=== PATIENT | male | born 1950 | race African-American/Black ===

== ENCOUNTER 2023-09-30 19:40 | Inpatient (IN) | payer OTHER ==
[~2023-09-30] VITALS: Ht 175.3 cm; Wt 69.4 kg
[2023-09-30 19:40] VITALS: BP_SYST 69; PULSE 86; RESP 18; TEMP 98.1; O2SAT 99
[2023-09-30] MEDS ORDERED: iohexoL 350 mgI/mL, 100 ML INFUS..BTL IV ONE (19:57)
[2023-09-30] MEDS ORDERED: ZINC50TA15 PO (20:19)
[2023-09-30] MEDS ORDERED: TRAZ-251 PO (20:19)
[2023-09-30] MEDS ORDERED: CLON1TAB12 PO (20:19)
[2023-09-30] MEDS ORDERED: MEMA10TA22 PO (20:19)
[2023-09-30] MEDS ORDERED: DONE5TAB33 PO (20:19)
[2023-09-30] MEDS ORDERED: BISA10SU61 RC (20:19)
[2023-09-30] MEDS ORDERED: [UNRECOGNIZED DRUG - CODE] PO (20:19)
[2023-09-30] MEDS ORDERED: VIS50 PO (20:19)
[2023-09-30] MEDS ORDERED: SIMV-343 PO (20:19)
[2023-09-30] MEDS ORDERED: DOCU100T10 PO (20:19)
[2023-09-30] MEDS ORDERED: MULT-1189 PO (20:19)
[2023-09-30] MEDS ORDERED: CARV12.548 PO (20:19)
[2023-09-30] MEDS ORDERED: VALS1TAB75 PO (20:19)
[2023-09-30] MEDS ORDERED: ASC500 PO (20:19)
[2023-09-30] MEDS ORDERED: TRAZ150T77 PO (20:19)
[2023-09-30] MEDS ORDERED: ASPI81CA PO (20:19)
[2023-09-30] MEDS ORDERED: SERT100T PO (20:19)
[2023-09-30] MEDS: NS 1000 ML IV.SOLN IV ONE (20:22)
[2023-09-30 20:30] LABS: INR 1.1 (0.80-1.20); PROTHROMBIN TIME 11.2 SECS (9.5-12.5)
[2023-09-30 20:32] LABS: BASOPHILS % (AUTO) 0.4 % (0.0-2.0); EOSINOPHILS # (AUTO) 0.1 K/uL (0.0-0.4); EOSINOPHILS % (AUTO) 1.3 % (0.0-4.0); HEMATOCRIT 40.3 % (36-54); HEMOGLOBIN 12.9 g/dL (14.0-18.0); LYMPHOCYTES # (AUTO) 1.8 K/uL (1.0-5.5); LYMPHOCYTES % (AUTO) 20.8 % (20.5-51.5); MEAN CORPUSCULAR HEMOGLOBIN 20 pg (27-31); MEAN CORPUSCULAR HGB CONC 32 % (32-36); MEAN CORPUSCULAR VOLUME 63 fL (79.0-98.0); MONOCYTES # (AUTO) 0.5 K/uL (0.0-1.0); MONOCYTES % (AUTO) 5.7 % (1.7-9.3); NEUTROPHILS # (AUTO) 6.2 K/uL (1.8-7.7); NEUTROPHILS % (AUTO) 71.8 % (40.0-70.0); PLATELET COUNT (AUTO) 294 K/uL (130-430); RED BLOOD CELL COUNT(AUTO) 6.36 MIL/uL (4.2-6.2); RED CELL DISTRIBUTION WIDTH 16.6 % (9.0-15.0); WHITE BLOOD COUNT (AUTO) 8.6 K/uL (4.8-10.8)
[2023-09-30] MEDS ORDERED: PIPERACILLIN/TAZOBACTAM 3.375 GM/VIAL (ZOSYN) IV ONE ×2 (20:48)
[2023-09-30] MEDS: PIPERACILLIN/TAZO 3.375 GM in NS 50 ML IV ONE (20:52)
[2023-09-30 21:01] LABS: ANION GAP 13 (5-15); CALCIUM 9.2 mg/dL (8.4-11.0); CARBON DIOXIDE 29 mmol/L (23-29); CHLORIDE 103 mmol/L (98-107); CHOLESTEROL 150 mg/dL (<200); CREATININE 1.16 mg/dL (0.55-1.30); GLUCOSE 163 mg/dL (74-106); HDL CHOLESTEROL 52 mg/dL (>45); POTASSIUM 3.7 mmol/L (3.5-5.1); SODIUM SERUM 145 mmol/L (136-145); TRIGLYCERIDES 92 mg/dL (30-150); UREA NITROGEN, BLOOD 12 mg/dL (8-21)
[2023-09-30 21:15] LABS: ANISOCYTOSIS 1+; HYPOCHROMASIA 1+
[2023-09-30 21:37] LABS: BILIRUBIN,URINE NEGATIVE (NEGATIVE); BLOOD, URINE NEGATIVE (NEGATIVE); CLARITY/URINE CLEAR (CLEAR); COLOR,URINE YELLOW (YELLOW); GLUCOSE,URINE NEGATIVE (NEGATIVE); KETONES,URINE NEGATIVE (NEGATIVE); LEUKOCYTE ESTERASE ,URINE NEGATIVE (NEGATIVE); NITRITE, URINE NEGATIVE (NEGATIVE); PROTEIN URINE NEGATIVE (NEGATIVE); UROBILINOGEN,URINE 0.2 (0.2-1.0)
[2023-09-30] MEDS: KCL 20 mEq in D5NS 1000 mL 1,000 ML IV SCH (21:58)
[2023-09-30 22:06] LABS: BARBITURATE, URINE NEGATIVE (NEG <=200); BENZODIAZEPINE, URINE NEGATIVE (NEG <=150); CANNABINOID, URINE NEGATIVE (NEG <=50); COCAINE, URINE NEGATIVE (NEG <=150); METHAMPHETAMINES SCREEN,URINE NEGATIVE (NEG <=500); OPIATE, URINE NEGATIVE (NEG <=100); PHENCYCLIDINE SCREEN,URINE NEGATIVE (NEG <=25); UR TRICYCLIC ANTIDEPRESSANTS NEGATIVE (NEG <=300); URINE AMPHETAMINE NEGATIVE (NEG <=500); URINE METHADONE NEGATIVE (NEG <=200); URINE OXYCODONE SCREEN NEGATIVE (NEG <=100)
[2023-09-30] MEDS: ENOXAPARIN SODIUM 40 MG/0.4 ML SYRINGE SUBCUT ONE (22:18)
[2023-10-01 04:41] LABS: ANION GAP 3 (5-15); CALCIUM 8.5 mg/dL (8.4-11.0); CARBON DIOXIDE 32 mmol/L (23-29); CHLORIDE 109 mmol/L (98-107); CREATININE 0.98 mg/dL (0.55-1.30); GLUCOSE 130 mg/dL (74-106); POTASSIUM 3.7 mmol/L (3.5-5.1); SODIUM SERUM 144 mmol/L (136-145); UREA NITROGEN, BLOOD 12 mg/dL (8-21)
[2023-10-01 04:56] LABS: BASOPHILS % (AUTO) 0.3 % (0.0-2.0); EOSINOPHILS # (AUTO) 0.1 K/uL (0.0-0.4); EOSINOPHILS % (AUTO) 0.6 % (0.0-4.0); HEMATOCRIT 37.4 % (36-54); HEMOGLOBIN 11.8 g/dL (14.0-18.0); LYMPHOCYTES # (AUTO) 2.1 K/uL (1.0-5.5); LYMPHOCYTES % (AUTO) 18.7 % (20.5-51.5); MEAN CORPUSCULAR HEMOGLOBIN 20 pg (27-31); MEAN CORPUSCULAR HGB CONC 32 % (32-36); MEAN CORPUSCULAR VOLUME 64 fL (79.0-98.0); MONOCYTES # (AUTO) 0.8 K/uL (0.0-1.0); MONOCYTES % (AUTO) 7.3 % (1.7-9.3); NEUTROPHILS # (AUTO) 8.4 K/uL (1.8-7.7); NEUTROPHILS % (AUTO) 73.1 % (40.0-70.0); PLATELET COUNT (AUTO) 274 K/uL (130-430); RED BLOOD CELL COUNT(AUTO) 5.86 MIL/uL (4.2-6.2); RED CELL DISTRIBUTION WIDTH 16.3 % (9.0-15.0); WHITE BLOOD COUNT (AUTO) 11.5 K/uL (4.8-10.8)
[2023-10-01 08:15] VITALS: BP_SYST 135; PULSE 67; RESP 20; TEMP 97.8; O2SAT 100
[2023-10-01] MEDS: ASPIRIN 81 MG TAB.CHEW PO SCH (09:35)
[2023-10-01] MEDS ORDERED: LIDOCAINE 1%, 20 ML MDV 20 ML ONE (11:09)
[2023-10-01] MEDS ORDERED: iohexoL 240 mgI/mL, 50 ML INFUS..BTL IV ONE (11:15)
[2023-10-01 12:00] VITALS: BP_SYST 130; PULSE 63; RESP 12; TEMP 97.3; O2SAT 99
[2023-10-01 16:00] VITALS: BP_SYST 133; PULSE 60; RESP 16; TEMP 97.6; O2SAT 100
[2023-10-01] MEDS: KCL 20 mEq in D5NS 1000 mL 1,000 ML IV SCH (18:26)
[2023-10-01 19:00] VITALS: O2SAT 95
[2023-10-01 20:00] VITALS: BP_SYST 139; PULSE 62; RESP 18; TEMP 99; O2SAT 62
[2023-10-01] MEDS: ENOXAPARIN SODIUM 40 MG/0.4 ML SYRINGE SUBCUT SCH (21:03)
[2023-10-01] MEDS: clonazePAM 0.5 MG TABLET PO PRN (21:03)
[2023-10-02 00:11] VITALS: BP_SYST 115; PULSE 74; RESP 18; TEMP 98.3; O2SAT 99
[2023-10-02] MEDS: QUEtiapine FUMARATE 25 MG TABLET PO SCH (00:44)
[2023-10-02 06:20] VITALS: BP_SYST 124; PULSE 67; RESP 18; O2SAT 94
[2023-10-02 08:00] VITALS: BP_SYST 115; PULSE 79; RESP 20; TEMP 97.6; O2SAT 97; O2SAT 98
[2023-10-02] MEDS: QUEtiapine FUMARATE 100 MG TABLET PO SCH (09:48)
[2023-10-02 12:55] VITALS: BP_SYST 94; PULSE 77; RESP 18; TEMP 97.6; O2SAT 95
[2023-10-02 20:30] VITALS: BP_SYST 145; PULSE 63; RESP 20; TEMP 97.7; O2SAT 96
[2023-10-02 21:30] VITALS: O2SAT 96
[2023-10-03] VITALS (8 sets, daily range): BP systolic 113–172; PULSE 70–79; RESP 18–20; TEMP 96.4–98.8; O2SAT 93–98
[2023-10-04] VITALS (7 sets, daily range): BP systolic 142–183; PULSE 72–84; RESP 15–18; TEMP 97.8–98.8; O2SAT 95–99
[2023-10-04] MEDS: LORazepam 2 MG/ML VIAL IM ONE (11:17)
== END 2023-10-04 18:06 | DRG 640 ==
LOC: SED 19:40 → SMU 21:07 → STU 10-01 01:48
PROVIDERS: ADMIT Family Medicine; ATTEND Family Medicine
PROC: 4A00X4Z Measurement of Central Nervous Electrical Activity, External Approach (ICD-10-PCS; principal; 2023-10-03)
DX: E86.0 Dehydration (principal); G93.41 Metabolic encephalopathy; E87.20 Acidosis, unspecified; Z66 Do not resuscitate; N40.0 Benign prostatic hyperplasia without lower urinary tract symptoms; I10 Essential (primary) hypertension; G30.9 Alzheimer's disease, unspecified; F02.80 Dementia in other diseases classified elsewhere, unspecified severity, without behavioral disturbance, psychotic disturbance, mood disturbance, and anxiety; Z79.82 Long term (current) use of aspirin; Z79.899 Other long term (current) drug therapy
CPT/HCPCS: 36415; 70450; 70496; 70498; 71045; 73560; 80048; 80061; 80307; 81001; 81003; 83037; 83605; 83735; 84484; 85025; 85610; 85730; 86886; 86900; 86901; 87040; 87081; 92610-GN; 93005; 95816; 99291; G0378; J1650; J2001; J2060; J2543; Q9966; Q9967